=== PATIENT | male | born 1965 | race African-American/Black ===

== ENCOUNTER 2017-04-14 08:16 | Emergency (ER) | payer MEDICAID ==
[~2017-04-14] VITALS: Ht 182.9 cm; Wt 99.1 kg
[2017-04-14 08:20] VITALS: BP 173/84
[2017-04-14] MEDS ORDERED: SODIUM CHLORIDE 0.9% 1,000ML IVBOLUS ONE (09:30)
[2017-04-14] MEDS ORDERED: SODIUM CHLORIDE FLUSH 10ML SYR IVF ONE (09:30)
[2017-04-14] MEDS ORDERED: ONDANSETRON 2MG/ML, 2ML IVPush ONE (09:30)
[2017-04-14 10:11] LABS: BLOOD UREA NITROGEN 10 mg/dL (7-18)
[2017-04-14 10:14] LABS: ASPARTATE AMINO TRANSFERASE 19 U/L (15-37)
== END 2017-04-14 11:06 | disposition home or self-care (01) ==
LOC: ED 08:54
DX: R19.7 Diarrhea, unspecified (principal); R11.2 Nausea with vomiting, unspecified; R10.84 Generalized abdominal pain; I10 Essential (primary) hypertension
CPT/HCPCS: 36415; 74000; 80053; 81003; 83690; 85025; 87491; 87591; 96360; 96361; 99285; J7030